=== PATIENT | female | born 1955 | race Caucasian/White ===

== ENCOUNTER 2021-03-28 07:42 | Day surgery (SDC) | payer MEDICARE, MEDICAID, SELFPAY ==
[2021-03-22 14:50] VITALS: BMI 24.7
--- NOTE | 2021-03-23 11:52 | MHC.SHP ---
Pre-Procedural Eval Section A The patient is an INPATIENT: No The History & Physical has been completed within 30 days and I have reviewed it.: Yes Section B Chief Complaint: cataract Allergies: Allergies Allergy/AdvReac Type Severity Reaction Status Date / Time No Known Allergies Allergy Verified 03/22/21 14:49 Plan Diagnosis/Plan: Unchanged I have reviewed the history and physical and performed a pertinent physical examination on my patient. No changes have occurred unless specified.
--- NOTE | 2021-03-25 14:53 | HO.ANESPROP2 ---
Documented by User: Morena Thomas 03/25/21 14:54 HPI - Anesthesia Eval Consult details Narrative: 66yo F for Right Cataract Extraction IOL Insertion PCP cleared No prev cataract on record [facility] Past Medical History Medical History Anxiety Arthritis COVID-19 vaccine series completed Elevated cholesterol HTN (hypertension) Pre-diabetes Surgical History Surgical History History of nasal surgery Hx of cholecystectomy Hx of colonoscopy Hx of tonsillectomy Social History Social History Are you a primary child care development specialist to a significant other at home: No Do you presently have visiting nurse or other home services: No Smoking Status: Never smoker Use of substances other than those prescribed or required for medical reasons: No Have you been hit, kicked, punched, or otherwise hurt by someone within the past year? If so, by whom?: No Are you DNR?: No Advance Directives: No Advance Directives Information Provided: No Advance Directives on File: No Recently lost weight without trying: No Eating poorly because of decreased appetite: No Nutrition Risks: No Nutritional Risk Meds Allergies Allergy/AdvReac Type Severity Reaction Status Date / Time No Known Allergies Allergy Verified 03/22/21 14:49 Home Medications Medication Instructions Recorded Confirmed Last Taken Type diclofenac sodium 4 g TOPICAL Q4-6H 03/22/21 03/22/21 Unknown History meloxicam 1 tab PO DAILY 03/22/21 03/22/21 Unknown History Exam Exam Date and Time: March 25, 2021 1453 Height,Weight and Vital Signs: Height 5 ft 3 in Weight 63.503 kg Assessment and Plan Assessment Anesthesia Assessment: Chart Reviewed Documented by User: Viviane Ambrosio 03/28/21 09:38 PMFSH Past Medical History Medical History Anxiety Arthritis COVID-19 vaccine series completed Elevated cholesterol HTN (hypertension) Pre-diabetes Family History Family history of problems with anesthesia: No Surgical History Surgical History History of nasal surgery Hx of cholecystectomy Hx of colonoscopy Hx of tonsillectomy History of Problems with Anesthesia: No Social History Social History Are you a primary child care development specialist to a significant other at home: No Do you presently have visiting nurse or other home services: No Smoking Status: Never smoker Use of substances other than those prescribed or required for medical reasons: No Have you been hit, kicked, punched, or otherwise hurt by someone within the past year? If so, by whom?: No Are you DNR?: No Advance Directives: No Advance Directives Information Provided: No Advance Directives on File: No Recently lost weight without trying: No Eating poorly because of decreased appetite: No Nutrition Risks: No Nutritional Risk Meds Allergies Allergy/AdvReac Type Severity Reaction Status Date / Time No Known Allergies Allergy Verified 03/22/21 14:49 Home Medications Medication Instructions Recorded Confirmed Last Taken Type diclofenac sodium 4 g TOPICAL Q4-6H 03/22/21 03/22/21 Unknown History meloxicam 1 tab PO DAILY 03/22/21 03/22/21 Unknown History Exam Height,Weight and Vital Signs: Vital Signs Temp Pulse Resp BP Pulse Ox 03/28/21 09:06 98.1 F 93 16 150/61 H 99 Airway Mallampati Class: II TM Dist: >3cm Neck ROM: Full Heart: RRR Lungs: CTAB Assessment and Plan Assessment Anesthesia Assessment: Anesthesia Plan Discussed and Chart Reviewed Final Anesthetic Review NPO: Yes ASA Class: II Final Preanesthetic Review: No Changes in Pt Med Stat, Meds/Allgs Chart Reviewed, Consent Obtained/Reviewed and Anes Risks/Benef Reviewed Patient Risk: Low Procedure Risk: Low Assessment/Block/Sedation in SS: Assess/Block/Sedation-SS Anesthetic Plan Anesthetic Plan: MAC: Disposition: Standard PACU
[2021-03-28] MEDS: Tetracaine HCl/PF 0.5% Oph Sol 4 ML DROPS 1 DROP EYE-RIGHT (09:04)
[2021-03-28 09:06] VITALS: BP 150/61; PULSE 93; RESP 16; TEMP 36.7; O2SAT 99
[2021-03-28] MEDS: Tropicamide 1 % Ophth Sol 3 ML BTL 1 DROP EYE-RIGHT ×3 (09:06→09:17)
[2021-03-28] MEDS: Phenylephrine HCL 2.5% Oph SoL 2 ML BOTTLE 1 DROP EYE-RIGHT ×3 (09:09→09:20)
[2021-03-28] MEDS: Lactated Ringers 500 ML 50 ML IV (09:45)
--- NOTE | 2021-03-28 10:09 | P.PCNO_ITS ---
Ophthalmology Procedure Procedure Date of Service: 03/28/21 Ophthalmology Viscoelastic: Healmario Murrayt Dual Pack Pro Ophthalmology Lenses: TECNIS [id number] (20) Procedure Notes: PREOPERATIVE DIAGNOSIS: Decreased visual acuity right eye secondary to cataract POSTOPERATIVE DIAGNOSIS: Same PROCEDURE: Right cataract extraction with intraocular lens insertion SURGEON: Franck Soliz M.D. ANESTHESIA: Topical/MAC ESTIMATED BLOOD LOSS: None COMPLICATIONS:Capsular Rupture After obtaining informed consent, the patient was brought to the operating room suite and placed in the supine position. After adequate sedation per anesthesia, topical drops of Tetracaine were given to the right eye. The eye was then prepped and draped in the usual sterile fashion. The operating room microscope was then positioned over the operative eye and a lid speculum placed. A paracentesis was created. Viscoelastic was then instilled into the anterior chamber. A three plane incision was then created temporally, utilizing a 2.85 mm keratome. Capsulotomy forceps were then utilized to create a circular tear capsulotomy. Hydrodissection and hydrodelineation were carried out until adequate mobilization of the nucleus occurred. Phacoemulsification was then utilized to remove the dense central nucl eus followed by removal of the cortical material utilizing the automated aspiration irrigation unit. Capsular rupture occurred requiring an Anterior Vitrectomy. Viscoelastic was instilled into the sulcus followed by placement of a posterior chamber intraocular lens without difficultyi into the sulcus. The residual Viscoelastic was then removed utilizing the automated IA machine. The wound was checked and found to be watertight. The patient tolerated the procedure well and the lid speculum was removed. Intracameral injection of Vigamox 0.1 mL followed by a subtenon injection of Kenalog-40 0.2 mL were administered. The patient will be seen in the a.m.
[2021-03-28 10:54] VITALS: BP 134/65; PULSE 71; RESP 16; TEMP 36.4; O2SAT 98
== END 2021-03-28 11:38 | disposition home or self-care (01) ==
PROVIDERS: PCP Internal Medicine; Visit Provider Ophthalmology
PROC: (CPT 66985; principal; 2021-03-28 09:40)
DX: H25.11 Age-related nuclear cataract, right eye (principal); H59.211 Accidental puncture and laceration of right eye and adnexa during an ophthalmic procedure; Z83.511 Family history of glaucoma; I10 Essential (primary) hypertension; R73.03 Prediabetes; Z79.899 Other long term (current) drug therapy
CPT/HCPCS: 66984; 67005; J2250; J3010; J3300; V2632

== ENCOUNTER 2021-04-11 07:18 | Day surgery (SDC) | payer MEDICARE, MEDICAID, SELFPAY ==
[2021-03-22 14:54] VITALS: BMI 24.7
--- NOTE | 2021-04-06 12:17 | HO.ANESPROP2 ---
Documented by User: Morena Thomas 04/06/21 12:18 HPI - Anesthesia Eval Consult details Narrative: 66yo F for Left Cataract Extraction IOL Insertion PCP cleared Right eye 5/3 with TIVA: Fent 100, Midaz 2 [facility] Past Medical History Medical History Anxiety Arthritis COVID-19 vaccine series completed Elevated cholesterol HTN (hypertension) Pre-diabetes Family History Family history of problems with anesthesia: No Surgical History Surgical History History of nasal surgery Hx of cataract extraction Hx of cholecystectomy Hx of colonoscopy Hx of tonsillectomy History of Problems with Anesthesia: No Social History Social History Are you a primary urgent care technician to a significant other at home: No Do you presently have visiting nurse or other home services: No Smoking Status: Never smoker Use of substances other than those prescribed or required for medical reasons: No Have you been hit, kicked, punched, or otherwise hurt by someone within the past year? If so, by whom?: No Are you DNR?: No Advance Directives: No Advance Directives Information Provided: No Advance Directives on File: No Recently lost weight without trying: No Eating poorly because of decreased appetite: No Nutrition Risks: No Nutritional Risk Meds Allergies Allergy/AdvReac Type Severity Reaction Status Date / Time No Known Allergies Allergy Verified 03/22/21 14:49 Home Medications Medication Instructions Recorded Confirmed Last Taken Type diclofenac sodium 4 g TOPICAL Q4-6H 03/22/21 03/22/21 Unknown History meloxicam 1 tab PO DAILY 03/22/21 03/22/21 Unknown History Exam Exam Date and Time: April 06, 2021 1217 Height,Weight and Vital Signs: Height 5 ft 3 in Weight 63.503 kg Assessment and Plan Assessment Anesthesia Assessment: Chart Reviewed Documented by User: Viviane Ambrosio 04/11/21 08:15 [facility] Past Medical History Medical History Anxiety Arthritis COVID-19 vaccine series completed Elevated cholesterol HTN (hypertension) Pre-diabetes Surgical History Surgical History History of nasal surgery Hx of cataract extraction Hx of cholecystectomy Hx of colonoscopy Hx of tonsillectomy Social History Social History Are you a primary urgent care technician to a significant other at home: No Do you presently have visiting nurse or other home services: No Smoking Status: Never smoker Use of substances other than those prescribed or required for medical reasons: No Have you been hit, kicked, punched, or otherwise hurt by someone within the past year? If so, by whom?: No Are you DNR?: No Advance Directives: No Advance Directives Information Provided: No Advance Directives on File: No Recently lost weight without trying: No Eating poorly because of decreased appetite: No Nutrition Risks: No Nutritional Risk Meds Allergies Allergy/AdvReac Type Severity Reaction Status Date / Time No Known Allergies Allergy Verified 03/22/21 14:49 Home Medications Medication Instructions Recorded Confirmed Last Taken Type diclofenac sodium 4 g TOPICAL Q4-6H 03/22/21 03/22/21 Unknown History meloxicam 1 tab PO DAILY 03/22/21 03/22/21 Unknown History Exam Height,Weight and Vital Signs: Vital Signs Temp Pulse Resp BP Pulse Ox 04/11/21 08:03 98.1 F 64 16 143/69 H 100 Airway Mallampati Class: II TM Dist: >3cm Neck ROM: Full Heart: RRR Lungs: CTAB Assessment and Plan Assessment Anesthesia Assessment: Anesthesia Plan Discussed and Chart Reviewed Final Anesthetic Review NPO: Yes ASA Class: II Final Preanesthetic Review: No Changes in Pt Med Stat, Meds/Allgs Chart Reviewed, Consent Obtained/Reviewed and Anes Risks/Benef Reviewed Patient Risk: Low Procedure Risk: Low Assessment/Block/Sedation in SS: Assess/Block/Sedation-SS Anesthetic Plan Anesthetic Plan: MAC: Disposition: Standard PACU
[2021-04-11 08:03] VITALS: BP 143/69; PULSE 64; RESP 16; TEMP 36.7; O2SAT 100
[2021-04-11] MEDS: Lactated Ringers 500 ML 50 ML IV (08:08)
[2021-04-11] MEDS: Tetracaine HCl/PF 0.5% Oph Sol 4 ML DROPS 1 DROP EYE-LEFT (08:09)
[2021-04-11] MEDS: Tropicamide 1 % Ophth Sol 3 ML BTL 1 DROP EYE-LEFT ×3 (08:10→08:18)
[2021-04-11] MEDS: Phenylephrine HCL 2.5% Oph SoL 2 ML BOTTLE 1 DROP EYE-LEFT ×3 (08:12→08:21)
--- NOTE | 2021-04-11 08:46 | HO.PNOPHT ---
Ophthalmology Procedure Procedure Date of Service: 04/11/21 Ophthalmology Viscoelastic: Healmario Duet Dual Pack Pro Ophthalmology Lenses: TECMELVINA [id number] (21) Procedure Notes: PREOPERATIVE DIAGNOSIS: Decreased visual acuity left eye secondary to cataract and glaucoma POSTOPERATIVE DIAGNOSIS: Same PROCEDURE: Left cataract extraction with intraocular lens insertion and trabeculectomy, left eye SURGEON: Franck Soliz M.D. ANESTHESIA: Topical/MAC ESTIMATED BLOOD LOSS: None COMPLICATIONS: None After obtaining informed consent, the patient was brought to the operating room suite and placed in the supine position. After adequate sedation per anesthesia, topical drops of Tetracaine were given to the left eye. The eye was then prepped and draped in the usual sterile fashion. The operating room microscope was then positioned over the left eye and a lid speculum placed. 2% Lidocaine was instilled subconjunctivally. After awaiting 30 seconds, a paracentesis was created superiorly. Hemostasis was then achieved using wet field cautery. Mitomycin .4mg/ml was then placed in the conjunctival pocket and held in place for two minutes. The subconjunctival pocket was then irrigated copiously with 20 mls of BSS. Paracentesis was then created. Viscoelastic was then instilled into the anterior chamber. A crescent blade was then utilized to create a partial thickness sclera wound followed by advancement to clear cornea with the crescent blade. A keratome was then utilized to enter the anterior chamber. Capsulotomy forceps were then utilized to create a continuous circular tear capsulotomy. Hydrodissection and hydrodelineation were carried out until adequate mobilization of the nucleus occurred. Phacoemulsification was utilized to remove the dense central nucleus followed by removal of remnant cortical material utilizing the automated aspiration irrigation unit. Viscoelastic was then instilled into the posterior capsular bag followed by placement of a posterior chamber intraocular lens. Attention was then directed to create a trabeculectomy. A [place] punch was then utilized to create the trabeculectomy. The residual Viscoelastic was then removed utilizing the automated IA machine. The egress of aqueous was evaluated and found to be appropriate. The conjunctiva was then closed with a 9-0 vicryl suture. BSS was then instilled into the anterior chamber creating a superior bleb, without obvious leakage. Intracameral injection of Vigamox 0.3%, 0.1 ml and subtenon injection of Kenalog-40 0.2 ml was given followed by an atropine drop. The patient tolerated the procedure well and will be followed up in the a.m.
--- NOTE | 2021-04-11 08:48 | HO.PNOPHT ---
Ophthalmology Procedure Procedure Date of Service: 04/11/21 Ophthalmology Viscoelastic: Healmario Murrayt Dual Pack Pro Ophthalmology Lenses: TECMELVINA [id number] (21) Procedure Notes: PREOPERATIVE DIAGNOSIS: Decreased visual acuity left eye secondary to cataract POSTOPERATIVE DIAGNOSIS: Same PROCEDURE: Left cataract extraction with intraocular lens insertion SURGEON: Franck Soliz M.D. ANESTHESIA: Topical/MAC ESTIMATED BLOOD LOSS: None COMPLICATIONS: Capsular instability After obtaining informed consent, the patient was brought to the operation room suite and placed in the supine position. After adequate sedation per anesthesia, topical drops of Tetracaine were given to the left eye. The eye was then prepped and draped in the usual sterile fashion. The operating room microscope was then positioned over the operative eye and a lid speculum placed. A paracentesis was created. Viscoelastic was then instilled into the anterior chamber. A three plane incision was then created temporally, utilizing a 2.85 mm keratome. Capsulotomy forceps were then utilized to create a circular tear capsulotomy. Hydrodissection and hydrodelineation were carried out until adequate mobilization of the nucleus occurred. Phacoemulsification was then utilized to remove the dense central nucleus followed by removal of the cortical material utilizing the automated aspiration irrigation unit. Viscoat elastic was instilled into the posterior capsular bag followed by placement of a posterior chamber intraocular lens without difficulty. It was noted that the PCIOL had some instability, I dialed the lens out of the capsular bag and placed it in the sulcus. The residual Viscoat elastic was then removed utilizing the automated IA machine. Miochol was installed into the Anterior chamber resulting in a small round Pupil. The wound was check and found to be watertight. The patient tolerated the procedure well and the lid speculum was removed. Intracameral injection of Vigamox 0.1 mL followed by a subtenon injection of Kenalog-40 0.2 mL were administered. The patient will be seen in the a.m.
[2021-04-11 09:12] VITALS: BP 123/61; PULSE 62; RESP 16; TEMP 36.4; O2SAT 99
[2021-04-11] MEDS: Acetaminophen 325 MG TABLET 650 MG PO (09:20)
== END 2021-04-11 10:11 | disposition home or self-care (01) ==
PROVIDERS: PCP Internal Medicine; Visit Provider Ophthalmology
PROC: (CPT 66985; principal; 2021-04-11 09:10)
DX: H25.12 Age-related nuclear cataract, left eye (principal); H54.7 Unspecified visual loss; Z83.511 Family history of glaucoma; I10 Essential (primary) hypertension; Z79.899 Other long term (current) drug therapy
CPT/HCPCS: 66984; J2250; J3010; J3300; V2632